=== PATIENT | female | born 1990 | race Caucasian/White ===

== ENCOUNTER 2018-03-20 16:12 | Inpatient (IN) | payer OTHER ==
[~2018-03-20] VITALS: Ht 165.1 cm; Wt 77.3 kg
[2018-03-20 16:22] VITALS: BP 145/77
[2018-03-20] MEDS ORDERED: PREN1TAB60 PO (16:50)
[2018-03-20] MEDS ORDERED: OXYTOCIN 30U/ 0.9% NaCL 500ML 500 ML IV ONE (16:54)
[2018-03-20] MEDS: D5%-LACTATED RINGERS 1,000 ML IV SCH (16:54)
[2018-03-20] MEDS ORDERED: FENTANYL PF 100 MCG/2ML IV PRN (17:00)
[2018-03-20] MEDS ORDERED: MISOPROSTOL 200 MCG TABLET ONE (17:00)
[2018-03-20] MEDS ORDERED: SODIUM CITRATE/CITRIC ACID 30 ML UDC PO PRN (17:00)
[2018-03-20] MEDS ORDERED: NEWBORN KIT ONE (17:00)
[2018-03-20] MEDS ORDERED: FENTANYL PF 100 MCG/2ML IVPush PRN (17:00)
[2018-03-20] MEDS ORDERED: OXYTOCIN 30U/ 0.9% NaCL 500ML 500 ML ONE (17:00)
[2018-03-20] MEDS ORDERED: LIDOCAINE-MPF 1%, 5ML ONE (17:00)
[2018-03-20] MEDS ORDERED: ONDANSETRON 2MG/ML, 2ML IVPush PRN ×2 (17:00→18:30)
[2018-03-20] MEDS: LACTATED RINGERS 1,000 ML IV SCH ×3 (17:10→21:13)
[2018-03-20 17:36] LABS: BASOPHILS # (AUTO) 0.03 x10^3/uL (0-0.1); BASOPHILS % (AUTO) 0 % (0-1); EOSINOPHILS # (AUTO) 0.07 x10^3/uL (0-0.4); EOSINOPHILS % (AUTO) 1 % (1-7); LYMPHOCYTES # (AUTO) 1.95 x10^3/uL (1-3.4); LYMPHOCYTES % (AUTO) 16 % (22-44); MD NO; MEAN CORPUSCULAR HEMOGLOBIN 30.1 pg (27.0-34.8); MEAN CORPUSCULAR HGB CONC 33.2 g/dL (32.4-35.8); MEAN CORPUSCULAR VOLUME 90.6 fL (80-100); MEAN PLATELET VOLUME 10.5 fL (7.4-10.4); MONOCYTES # (AUTO) 0.97 x10^3/uL (0.2-0.8); MONOCYTES % (AUTO) 8 % (2-9); NEUTROPHILS # (AUTO) 9.02 x10^3/uL (1.8-6.8); NEUTROPHILS % (AUTO) 75 % (42-75); PLATELET COUNT 234 x10^3/uL (130-400); RED BLOOD COUNT 4.42 x10^6/uL (3.82-5.3); RED CELL DISTRIBUTION WIDTH 14.5 % (9.6-15.2)
[2018-03-20 17:42] LABS: MICROSCOPIC INDICATED
[2018-03-20 17:46] LABS: ALANINE AMINOTRANSFERASE 17 U/L (12-78); ALBUMIN 2.7 g/dL (3.4-5.0); ANION GAP 7 mmol/L (5-15); CALCIUM 9.2 mg/dL (8.5-10.1); CHLORIDE 105 mmol/L (98-107); CREATININE 0.61 mg/dL (0.55-1.02)
[2018-03-20 17:49] LABS: ALKALINE PHOSPHATASE 100 U/L (45-117); BILIRUBIN, DIRECT < 0.1 mg/dL (0.1-0.2); BILIRUBIN,TOTAL 0.3 mg/dL (0.2-1.0); TOTAL PROTEIN 6.9 g/dL (6.4-8.2)
[2018-03-20] MEDS ORDERED: BUPIVACAINE/PF 0.25% ONE (17:52)
[2018-03-20] MEDS ORDERED: FENTANYL/BUPIV./NS/PF 250 ML EPIDCONT ONE (17:52)
[2018-03-20 17:53] LABS: CREATININE,URINE RANDOM 25.3 mg/dL
[2018-03-20] MEDS ORDERED: FENTANYL/BUPIV./NS/PF 250 ML EPIDCONT SCH (18:24)
[2018-03-20] MEDS ORDERED: EPHEDRINE 50 MG/ML, 1ML IVPush PRN (18:30)
[2018-03-20] MEDS ORDERED: NALOXONE 0.4 MG/ML, 1ML IVPush PRN (18:30)
[2018-03-20] MEDS ORDERED: DIPHENHYDRAMINE 50 MG/ML, 1ML IVPush PRN (18:30)
[2018-03-20] MEDS ORDERED: LACTATED RINGERS 1,000 ML IVBOLUS PRN (18:30)
[2018-03-20] MEDS ORDERED: ACETAMINOPHEN 325 MG TABLET ONE (19:58)
[2018-03-20] MEDS ORDERED: ACETAMINOPHEN 325 MG TABLET PO PRN (20:00)
[2018-03-20] MEDS ORDERED: FENTANYL PF 100 MCG/2ML ONE (22:25)
[2018-03-20] MEDS ORDERED: ONDANSETRON 4 MG TABLET ONE (23:34)
[2018-03-20] MEDS ORDERED: ONDANSETRON ODT 4 MG ONE (23:35)
[2018-03-21] MEDS ORDERED: ONDANSETRON ODT 4 MG PO PRN
[2018-03-21] MEDS: D5%-LACTATED RINGERS 1,000 ML IV SCH (00:54)
[2018-03-21] MEDS ORDERED: LIDOCAINE-MPF 1%, 5ML ONE (05:13)
[2018-03-21] MEDS: LACTATED RINGERS 1,000 ML IV SCH (05:22)
[2018-03-21] MEDS: OXYTOCIN 30U/ 0.9% NaCL 500ML 500 ML IV SCH ×15 (06:11→23:23)
[2018-03-21] MEDS ORDERED: BISACODYL 10 MG SUPP PR PRN (06:30)
[2018-03-21] MEDS ORDERED: ACETAMINOPHEN 325 MG TABLET PO PRN ×2 (06:30)
[2018-03-21] MEDS ORDERED: HYDROcodone/APAP 5/325 TABLET PO PRN ×2 (06:30)
[2018-03-21] MEDS ORDERED: CALCIUM CARBONATE 500 MG TAB.CHEW PO PRN (06:30)
[2018-03-21] MEDS ORDERED: ONDANSETRON 2MG/ML, 2ML IV PRN (06:30)
[2018-03-21] MEDS ORDERED: MISOPROSTOL 200 MCG TABLET PR PRN (06:30)
[2018-03-21] MEDS ORDERED: IBUPROFEN 600 MG TABLET ONE (06:44)
[2018-03-21] MEDS: IBUPROFEN 600 MG TABLET PO PRN ×3 (06:45→20:17)
[2018-03-21 07:50] VITALS: BP 105/94
[2018-03-21] MEDS: DOCUSATE 100 MG CAPSULE PO PRN ×2 (09:49→20:17)
[2018-03-21] MEDS: PRENATAL VIT/IRON/FA 1 EACH TABLET PO SCH (09:49)
[2018-03-21 12:42] VITALS: BP 111/64
[2018-03-21 13:06] LABS: MEAN CORPUSCULAR HEMOGLOBIN 29.9 pg (27.0-34.8); MEAN CORPUSCULAR HGB CONC 33.5 g/dL (32.4-35.8); MEAN CORPUSCULAR VOLUME 89.3 fL (80-100); MEAN PLATELET VOLUME 9.8 fL (7.4-10.4); PLATELET COUNT 179 x10^3/uL (130-400); RED BLOOD COUNT 3.81 x10^6/uL (3.82-5.3); RED CELL DISTRIBUTION WIDTH 14.1 % (9.6-15.2)
[2018-03-21 13:26] LABS: BASOPHILS % (AUTO) 0 % (0-1); EOSINOPHILS # (AUTO) 0.01 x10^3/uL (0-0.4); EOSINOPHILS % (AUTO) 0 % (1-7); LYMPHOCYTES # (AUTO) 1.67 x10^3/uL (1-3.4); LYMPHOCYTES % (AUTO) 8 % (22-44); MD SCAN; MONOCYTES # (AUTO) 1.07 x10^3/uL (0.2-0.8); MONOCYTES % (AUTO) 5 % (2-9); NEUTROPHILS # (AUTO) 18.08 x10^3/uL (1.8-6.8); NEUTROPHILS % (AUTO) 87 % (42-75)
[2018-03-21 16:00] VITALS: BP 116/61
[2018-03-21 20:10] VITALS: BP 115/69
[2018-03-22 00:23] VITALS: BP 122/72
[2018-03-22] MEDS: OXYTOCIN 30U/ 0.9% NaCL 500ML 500 ML IV SCH (02:11)
[2018-03-22 04:20] VITALS: BP 104/54
[2018-03-22 08:00] VITALS: BP 122/83
[2018-03-22] MEDS: IBUPROFEN 600 MG TABLET PO PRN (08:00)
[2018-03-22] MEDS: DOCUSATE 100 MG CAPSULE PO PRN (08:00)
[2018-03-22] MEDS: PRENATAL VIT/IRON/FA 1 EACH TABLET PO SCH (08:00)
[2018-03-22] MEDS ORDERED: PREN1TAB60 PO (08:49)
== END 2018-03-22 12:40 | disposition home or self-care (01) | DRG 775 ==
LOC: LDOP 16:12 → LDIP 17:07 → 2NW 03-21 07:40
PROVIDERS: ADMIT Obstetrics & Gynecology; ATTEND Obstetrics & Gynecology
PROC: 0KQM0ZZ Repair Perineum Muscle, Open Approach (ICD-10-PCS; principal; 2018-03-21)
PROC: 10E0XZZ Delivery of Products of Conception, External Approach (ICD-10-PCS; 2018-03-21)
PROC: 10907ZC Drainage of Amniotic Fluid, Therapeutic from Products of Conception, Via Natural or Artificial Opening (ICD-10-PCS; 2018-03-21)
PROC: 3E0R3BZ Introduction of Anesthetic Agent into Spinal Canal, Percutaneous Approach (ICD-10-PCS; 2018-03-21)
PROC: 00HU33Z Insertion of Infusion Device into Spinal Canal, Percutaneous Approach (ICD-10-PCS; 2018-03-21)
DX: O13.4 Gestational [pregnancy-induced] hypertension without significant proteinuria, complicating childbirth (principal); J45.909 Unspecified asthma, uncomplicated; O77.0 Labor and delivery complicated by meconium in amniotic fluid; Z37.0 Single live birth; O70.1 Second degree perineal laceration during delivery; O76 Abnormality in fetal heart rate and rhythm complicating labor and delivery; O69.81X0 Labor and delivery complicated by cord around neck, without compression, not applicable or unspecified; O99.52 Diseases of the respiratory system complicating childbirth; Z3A.40 40 weeks gestation of pregnancy; Z90.89 Acquired absence of other organs
CPT/HCPCS: 36415; 80053; 81001; 82248; 82570; 82803; 83615; 84156; 84550; 85025; 86850; 86900; Q0162; J2590; J7120